=== PATIENT | male | born 1970 | race Caucasian/White ===

== ENCOUNTER 2017-03-04 17:13 | Emergency (ER) | payer MEDICAID ==
[~2017-03-04] VITALS: Ht 165.1 cm; Wt 65.8 kg
[2017-03-04 17:13] VITALS: BP_SYST 164
[2017-03-04] MEDS ORDERED: ACETAMINOPHEN 500 MG TABLET PO ONE (17:30)
[2017-03-04] MEDS ORDERED: DIPH-TET-PERTUS Vaccine 0.5 ML VIAL (ADACEL) I.M. ONE (18:45)
[2017-03-04] MEDS ORDERED: ACETAMINOPHEN 500 MG TABLET ONE (19:33)
[2017-03-04] MEDS ORDERED: NACL 0.9% 1,000 ML IV ONE (19:45)
[2017-03-04 20:50] VITALS: BP_SYST 114
== END 2017-03-04 20:50 | disposition still patient (30) ==
LOC: SED 17:13
DX: S01.112A Laceration without foreign body of left eyelid and periocular area, initial encounter (principal); J34.2 Deviated nasal septum; F32.9 Major depressive disorder, single episode, unspecified; F10.20 Alcohol dependence, uncomplicated; Y04.0XXA Assault by unarmed brawl or fight, initial encounter; Y93.89 Activity, other specified; Y92.89 Other specified places as the place of occurrence of the external cause; Y99.8 Other external cause status
CPT/HCPCS: 12011; 70486; 90471; 90715; 96360; 99284; J7030